=== PATIENT | male | born 1970 | race Caucasian/White ===

== ENCOUNTER 2020-12-19 14:07 | Outpatient (REF) | payer MEDICARE, MEDICAID, SELFPAY ==
[2020-12-19 15:54] LABS: Syphilis Screen Nonreactive (Nonreactive)
[2020-12-19 15:59] LABS: Erythrocyte Sedimentation Rate 2 MM/HR (0-15)
[2020-12-21 05:42] LABS: Lyme Abs Screen <0.90 index
[2020-12-22 19:41] LABS: Ceruloplasmin 23 mg/dL (18-36)
[2020-12-23 11:01] LABS: Copper RBC 0.84 mg/L (0.53-0.91)
== END 2020-12-19 14:08 | disposition home or self-care (01) ==
LOC: HO.LAB 14:07
PROVIDERS: PCP Nurse Practitioner Family; Visit Provider Psychiatry & Neurology Neurology
DX: G93.40 Encephalopathy, unspecified (principal)
CPT/HCPCS: 36415; 82390; 82525; 85652; 86617; 86618; 86780

== ENCOUNTER 2021-01-04 13:12 | Outpatient (REF) | payer MEDICARE, MEDICAID, SELFPAY ==
--- NOTE | ~2021-01-04 | XR_ITS ---
EXAMINATION: CHEST, ABDOMEN AND SKULL. CLINICAL INFORMATION: Pre-MRI screening. COMPARISON: None TECHNIQUE: Skull AP and lateral views. Chest one view. Abdomen one view. FINDINGS: Skull: AP and lateral views of skull reveals no radiopaque metallic foreign body seen in the orbits or the skull. The paranasal sinuses are well-aerated and clear. No calvarial abnormality seen. Mastoid sinuses are clear. CHEST: The lungs are well-expanded and clear of acute process. The heart size and pulmonary vascularity is normal. No gross bony abnormality seen. ABDOMEN: There is moderate to significant stool seen throughout the colon without distention. The small bowel loops are normal. No organomegaly. No radiopaque metallic foreign body seen. Scattered phleboliths in the left pelvis. No gross bony abnormality. XR/XR pre mri screening IMPRESSION: No radiopaque metallic foreign body seen in the skull chest or the abdomen. Moderate to 6 severe constipation. The lungs are clear.
--- NOTE | ~2021-01-04 | MR_ITS ---
MRI OF THE BRAIN WITHOUT IV CONTRAST INDICATION: Encephalopathy. COMPARISON: None available. TECHNIQUE: Multiplanar multisequence MR imaging of the brain was obtained without IV contrast. FINDINGS: There is no hydrocephalus, extra-axial surface collection, or herniation. There is severe global cerebral volume loss and there is mild chronic microangiopathy. The major flow voids at the skull base are preserved. There is no acute infarct on diffusion-weighted imaging. There is no intracranial hemorrhage on the gradient recalled echo acquisition. Mineralization within the globus pallidus bilaterally. The midline structures are normal. The cerebellar tonsils are normally positioned. The cerebellum and brainstem are normal. The craniocervical junction is normal. Osseous marrow signal intensity is homogenous. The visualized soft tissues are unremarkable. MR/MR head/brain wo con IMPRESSION: - No acute intracranial findings. - There is severe global cerebral volume loss and there is mild chronic microangiopathy.
== END 2021-01-04 13:13 | disposition home or self-care (01) ==
LOC: HO.MRI 13:12
PROVIDERS: PCP Nurse Practitioner Family; Visit Provider Psychiatry & Neurology Neurology
DX: G93.40 Encephalopathy, unspecified (principal)
CPT/HCPCS: 70551